=== PATIENT | male | born 1960 | race Caucasian/White ===

== ENCOUNTER 2017-03-19 13:19 | Observation (INO) | payer OTHER ==
[~2017-03-19] VITALS: Ht 182.9 cm; Wt 127.6 kg
--- NOTE | ~2017-03-19 | HP ---
ADMIT: 03/19/2017 RM/LOC: 9 [facility] MR#: [id number] [address] [address] RALPH COELHO [address] [address] Pre-OP History and Physical SEX: M AGE: 56 : 1960 Corrected: 03/19/2017 1712 héctor DATE OF SERVICE: REASON FOR ADMISSION: Acute appendicitis. HISTORY OF PRESENT ILLNESS: This patient is a 56-year-old male, who stated about 3:30 this morning he started noticing some abdominal pain, was not feeling good, went to one of our, I believe, local [facility] places. They checked a blood count, noted him to have right lower quadrant pain and ended up sending him to the hospital for a CT scan that was positive for acute appendicitis. I have discussed with Ralph the procedure of laparoscopic appendectomy, what it entails, risks, benefits, possible complications, and alternatives. He understands and wished to proceed. PAST MEDICAL HISTORY: He denies any other past medical history, any past surgical history. MEDICATIONS: Denies taking any medications. ALLERGIES: DENIES ANY ALLERGIES. SOCIAL HISTORY: Denies any significant tobacco, alcohol, or illicit drugs. REVIEW OF SYSTEMS: Positive for just having the abdominal pain and right lower quadrant pain and just overall not feeling well. Everything else is otherwise negative on review of systems. FAMILY HISTORY: Noncontributory. ADMIT: 03/19/2017 RM/LOC: 9 [facility] MR#: [id number] [place] [id number] RALPH COELHO [id number] [place] [address] Pre-OP History and Physical SEX: M AGE: 56 : 1960 PHYSICAL EXAMINATION: GENERAL: He is alert. He is oriented. He is in no significant distress. HEENT: His sclerae are nonicteric. His extraocular muscles are intact. CHEST: Clear anteriorly. HEART: Regular rate and rhythm. ABDOMEN: Soft. Positive bowel sounds. No mass. No organomegaly detected. He does have rebound in the right lower quadrant. EXTREMITIES: Without any clubbing, cyanosis, or edema. ASSESSMENT AND PLAN: Laparoscopic appendectomy. Husam Desir MD/ pepe JOB #: [id number] CC: Husam Desir, Attending Physician Husam Dseir, Family Physician Corrected: 03/19/2017 1712 héctor
--- NOTE | 2017-03-20 19:21 | OR ---
ADMIT: 03/19/2017 RM/LOC: [address] [facility] MR#: [id number] [address] [facility] [place], [place] [address] MADHURI COELHO [address] [place], [place] [id number] Operative/Delivery Room Report SEX: M AGE: 56 : 1960 SURGERY DATE: 03/19/2017 SURGEON: Husam Desir MD PREOPERATIVE DIAGNOSIS: Acute appendicitis. POSTOPERATIVE DIAGNOSIS: Acute gangrenous appendicitis. PROCEDURE: Laparoscopic appendectomy. ANESTHESIA: General endotracheal tube anesthesia. ESTIMATED BLOOD LOSS: 25 mL or less. INDICATION FOR PROCEDURE: Please see my H and P. DESCRIPTION OF PROCEDURE: After the risks, benefits, possible complications, and the alternatives had been explained, and informed consent had been obtained, the patient was taken back to the operating room, underwent general endotracheal tube anesthesia, and the surgical field was taken. The surgical field was prepped and draped in a sterile manner. An infraumbilical incision was made. The Veress needle was inserted. The abdomen was insufflated with CO2. Once there was adequate insufflation, a 5 mm port was placed. Camera was placed through this port site. Under direct visualization, then placed a 5 mm suprapubic and an 11 mm left-sided port. The appendix appeared gangrenous little bit stuff keeping it stuck down there. I had to free up. Once I got it freed up enough then I could identify the base coming directly off the cecum, get across the mesoappendix with the window there in the mesoappendix come across the base with the Endo TORSTEN stapler across the mesoappendix with the Endo TORSTEN stapler. The appendix was placed in EndoCatch bag, removed through the left lower quadrant port site. Inspecting the area, irrigated wound with much irrigation as possible. Cleaned everything up, cleaned out the pelvis. After I had everything adequately cleaned up, no signs of any bleeding along the staple lines. I injected 0.5% Marcaine for pain control in the incision sites. Closed the fascia of the left lower quadrant port site with an 0-Polysorb suture using the suture passer and then the skin was all closed with 4-0 Monocryl after all of the ports were removed. Tolerated procedure well, was extubated and taken to recovery room in stable and satisfactory condition. Husam Desir MD/ pepe JOB #: [id number] CC: Husam Desir, Attending Physician Husam Desir, Family Physician
== END 2017-03-20 12:35 | disposition home or self-care (01) ==
LOC: PTH.S 13:19 → RAD.GIR 13:19 → 6PED 14:55
PROVIDERS: ADMIT Surgery
PROC: 0DTJ4ZZ Resection of Appendix, Percutaneous Endoscopic Approach (ICD-10-PCS; principal; 2017-03-19)
DX: K35.80 Unspecified acute appendicitis (principal); E66.9 Obesity, unspecified